=== PATIENT | male | born 1980 | race Caucasian/White ===

== ENCOUNTER 2017-06-03 03:41 | Emergency (ER) | payer OTHER ==
[~2017-06-03] VITALS: Ht 167.6 cm; Wt 70.3 kg
--- NOTE | ~2017-06-03 | CT4 ---
[facility] A Service of [facility] RADIOLOGY TEXT RESULTS PATIENT: CYNDI TREJO LOCATION: SED : 82 UNIT #: [id number] AGE: [address]: Terry Zarate MD SEX: M ORDER DR: [id number] [address] [address] [id number] MR#: [id number] Acc #: [id number] NAME: CYNDI TREJO : 1980 SEX: M STUDY DATE/TIME: 06/03/2017 4:58 UNIT: SED ROOM: STUDY DESCRIPTION: CT Abd and Pelv Wo Cont Attending Physician: Terry Zarate M.D. Ordering Physician: Terry Zarate M.D. Primary Care Physician: No Primary Care Physician MEDICAL IMAGING REPORT This report is preliminary unless electronic signature is present. EXAM CT abdomen and pelvis without contrast. DATE 06/03/2017 HISTORY Right flank pain and low back pain for 2 weeks. History of kidney stones. COMPARISON CT abdomen and pelvis without contrast, 01/17/2015. PROCEDURE 3 mm noncontrast axial images through the abdomen and pelvis. This CT exam was performed with one or more of the following radiation dose reduction techniques: automatic exposure control, adjustment of mA and/or kV according to patient size, and iterative reconstruction. Enteric contrast not administered. Sagittal and coronal reformatted images were obtained. FINDINGS Abdomen findings: Nonobstructing bilateral intrarenal calculi are present. There is a 5 mm stone lodged within left ureterovesical junction without hydronephrosis or hydroureter. Cholecystectomy changes. Lung bases are clear. Noncontrast appearance of the liver, spleen, pancreas and adrenal glands within normal limits. Surgical changes of partial right colon resection. No abnormal large or small bowel dilation is seen. Pelvis findings: Signs of left inguinal hernia repair without hernia recurrence. Urinary bladder, prostate and rectum are normal. No pelvic adenopathy or free fluid. No acute osseous abnormality. IMPRESSION [facility] A Service of [facility] RADIOLOGY TEXT RESULTS PATIENT: YOUNG,CYNDI LOCATION: SED : 82 UNIT #: [id number] AGE: [address]: Terry Zarate MD SEX: M ORDER DR: 1. 5 mm left ureteral pelvic junction stone without hydronephrosis or hydroureter. 2. Bilateral nonobstructing intrarenal calculi. 3. Surgical changes of partial ascending colonic resection, cholecystectomy, left inguinal hernia repair. Dictated by... Brigette Antunez M.D. THIS IS AN ELECTRONICALLY VERIFIED REPORT Brigette Antunez M.D. at 06/03/2017 9:58 PM ADAM/karis TD: 06/03/2017 07:43 JOB #: [id number] MEDICAL IMAGING REPORT Page 1 of 1
[2017-06-03] MEDS ORDERED: PROTONIX PO (04:00)
[2017-06-03] MEDS ORDERED: HCTZ PO (04:01)
[2017-06-03] MEDS ORDERED: FLOMAX0.4 M1 PO (04:01)
[2017-06-03 04:21] LABS: BASOPHIL# 0.1 X10e3 (0-0.3); BASOPHIL% 1.2 % (0-2.5); EOSINOPHIL# 0.5 X10e3 (0-0.7); HEMOGLOBIN 14.7 gm/dL (13.0-16.0); LYMPHOCYTE# 3.5 X10e3 (1.0-3.5); LYMPHOCYTE% 39.1 % (17.0-45.0); MEAN CELL VOLUME 82.2 FL (83-96); MEAN CORPUSCULAR HEMOGLOBIN 28.8 PG (28-34); MEAN PLATELET VOLUME 7.7 FL (6.5-11.5); MONOCYTE# 0.8 X10e3 (0-1.0); MONOCYTE% 8.7 % (3.0-12.0); PLATELET COUNT 360 X10e3 (140-420); RED BLOOD COUNT 5.11 X10e (3.90-5.60); RED CELL DISTRIBUTION WIDTH 13.3 % (11.0-15.5); WHITE BLOOD COUNT 8.9 X10e3 (4.0-10.5)
[2017-06-03 04:22] LABS: DIFF IND NO
[2017-06-03 04:37] LABS: ALBUMIN SERUM 4.3 g/dL (3.5-5.0); BILIRUBIN,TOTAL 0.4 mg/dL (0.2-2.0); BUN/CREATININE RATIO 21.25; CALCIUM SERUM 9.1 mg/dL (8.4-10.2); CREATININE SERUM 0.8 mg/dL (0.6-1.4); POTASSIUM 3.7 mmol/L (3.5-5.1); PROTEIN TOTAL SERUM 7.7 g/dL (6.0-8.3)
[2017-06-03 04:48] LABS: URINE SOURCE CLEAN CATCH
[2017-06-03 04:50] LABS: URINE APPEARANCE CLEAR; URINE BILIRUBIN NEG (NEG); URINE BLOOD 1+ (NEG); URINE COLOR YELLOW; URINE GLUCOSE NEG (NORM); URINE KETONE NEG (NEG); URINE LEUKOCYTE ESTERASE NEG (NEG); URINE NITRATE NEG (NEG); URINE PROTEIN NEG (NEG); URINE SPECIFIC GRAVITY 1.025 (1.003-1.035); URINE UROBILINOGEN 0.2 MG/DL (NORM)
[2017-06-03 04:52] LABS: MICRO INDICATED? YES
[2017-06-03 04:54] LABS: CULTURE INDICATED? NO; URINE BACTERIA NEG (NEG); URINE MUCUS PRESENT; URINE SQUAMOUS EPITHELIAL CELL FEW /[HPF]; URINE WBC 0-2 /[HPF] (0-5)
== END 2017-06-03 05:44 | disposition home or self-care (01) ==
LOC: SED 03:41
DX: N20.0 Calculus of kidney (principal); K21.9 Gastro-esophageal reflux disease without esophagitis; F17.200 Nicotine dependence, unspecified, uncomplicated; Z79.899 Other long term (current) drug therapy; Z88.5 Allergy status to narcotic agent
CPT/HCPCS: 36415; 74176; 80053; 81003; 85025; 96374; 99284; J1170; J1885